=== PATIENT | male | born 1995 | race Caucasian/White ===

== ENCOUNTER 2019-09-08 10:18 | Inpatient (IN) | payer BC ==
[~2019-09-08] VITALS: Ht 177.8 cm; Wt 109.0 kg
[2019-09-08 10:31] VITALS: BP 157/83
--- NOTE | 2019-09-08 10:37 | NUR ---
pt ambulated to restroom with steady gait.
--- NOTE | 2019-09-08 10:40 | NUR ---
C/O FREQUENT URINATION, INCREASED THIRST, WEIGHT LOSS, BLURRY VISION, DIZZINESS, AND HEADACHE X2 DAYS. PAIN 5/10. PT REPORTS 10-15LB WEIGHT LOSS IN LAST WEEK. FSBS 435 UPON TRIAGE. DENIES AB PAIN, CP, SOB, OR N/V/D. PUPILS PERRL. PT REPORTS FAMILY HX OF DIABETES. PT TACHY AT 111. PT ALERT AND AWAKE, AMBULATORY WITH STEADY GAIT HX: ADHD RX: NONE
--- NOTE | 2019-09-08 10:42 | NUR ---
DR DYKES AT BEDSIDE
[2019-09-08] MEDS ORDERED: NACL 0.9% 2,000 ML IV ONE (10:50)
--- NOTE | 2019-09-08 10:56 | NUR ---
Respiratory therapist at bedside for ABG.
--- NOTE | 2019-09-08 11:00 | NUR ---
iv inserted and labs drawn bedside
--- NOTE | 2019-09-08 11:04 | NUR ---
ekg being completed bedside
--- NOTE | 2019-09-08 11:13 | NUR ---
XRAY AT BEDSIDE
[2019-09-08 11:18] LABS: APPEARANCE,URINE CLEAR (CLEAR); BILIRUBIN,URINE NEGATIVE (NEGATIVE); BLOOD, URINE 1+ (NEGATIVE); COLOR,URINE YELLOW (YELLOW); LEUKOCYTE ESTERASE ,URINE NEGATIVE (NEGATIVE); NITRITE, URINE NEGATIVE (NEGATIVE); PH,URINE 5.5 (5.0-9.0); UGLUCOSE 3+ (NEGATIVE)
[2019-09-08 11:22] LABS: BASOPHILS % (AUTO) 0.4 % (0.0-2.0); EOSINOPHILS # (AUTO) 0.1 K/uL (0-0.4); HEMATOCRIT 43.7 % (36-52); HEMOGLOBIN 15.3 g/dL (12.0-18.0); LYMPHOCYTES # (AUTO) 1.7 K/uL (2.0-11.5); LYMPHOCYTES % (AUTO) 20.4 % (20.5-51.1); MEAN CORPUSCULAR HEMOGLOBIN 29 pg (27-31); MEAN CORPUSCULAR HGB CONC 35 g/dL (33-37); MEAN CORPUSCULAR VOLUME 82.3 fL (80-94); MONOCYTES # (AUTO) 0.5 K/uL (0.8-1.0); MONOCYTES % (AUTO) 6.5 % (1.7-9.3); NEUTROPHILS # (AUTO) 5.9 K/uL (1.8-7.7); NEUTROPHILS % (AUTO) 71.7 % (42.2-75.2); PLATELET COUNT (AUTO) 289 K/uL (140-450); RED BLOOD CELL COUNT(AUTO) 5.31 MIL/uL (4.20-6.10); RED CELL DISTRIBUTION WIDTH 12.8 % (11.6-13.7); WHITE BLOOD COUNT (AUTO) 8.2 K/uL (4.8-10.8)
[2019-09-08 11:58] LABS: WBC,URINE 0-5 /HPF (0-5)
--- NOTE | 2019-09-08 12:02 | NUR ---
LABS ARE BEING SENT TO ANOTHER FACILITY DUE TO HIGH FAT CONTENT PER BALANCE SCREWHEAD POLISHER
--- NOTE | 2019-09-08 12:07 | NUR ---
RESIDENT AT BEDSIDE.
--- NOTE | 2019-09-08 12:08 | NUR ---
NADR PAIN 02/07
[2019-09-08] MEDS ORDERED: ONDANSETRON 4 MG/2 ML VIAL IM/IVP PRN (12:10)
[2019-09-08] MEDS ORDERED: ZOLPIDEM 5 MG TAB PO PRN (12:10)
[2019-09-08] MEDS ORDERED: MORPHINE SULFATE 2 MG/ML SYR IVP PRN (12:10)
[2019-09-08] MEDS ORDERED: HYDROcodone/APAP 5/325 MG 1 TAB TAB PO PRN (12:10)
[2019-09-08] MEDS ORDERED: DOCUSATE SODIUM 100 MG GELCAP PO PRN (12:10)
[2019-09-08] MEDS ORDERED: LORazepam 2 MG/ML VIAL IM/IVP PRN (12:10)
[2019-09-08] MEDS ORDERED: DEXT 5% / NACL 0.45% 1,000 ML IV SCH (12:20)
[2019-09-08] MEDS ORDERED: DEXTROSE 50% 50 ML SYR IVP PRN ×2 (12:20→16:20)
[2019-09-08] MEDS: NACL 0.9% 1,000 ML IV SCH ×2 (12:35→15:40)
[2019-09-08] MEDS ORDERED: NACL 0.9% 1,000 ML IV SCH ×2 (12:45→14:20)
--- NOTE | 2019-09-08 12:49 | NUR ---
SPOKE OVER THE PHONE WITH RESIDENT HANG, INSTRUCTED TO NOT START INSULIN DRIP UNTIL POTASSIUM LAB HAS RETURNED AND TO CALL RESIDENT BEFORE STARTING DRIP
--- NOTE | 2019-09-08 13:15 | NUR ---
consent form signed for picc line
--- NOTE | 2019-09-08 13:26 | NUR ---
accu check 247 mg/dl dr mills informed.
--- NOTE | 2019-09-08 13:26 | NUR ---
LABS AT BEDSIDE.
--- NOTE | 2019-09-08 13:33 | NUR ---
RECEIVED PT FROM ER VIA GURNEY; TRANSFERRED TO ICU 5.PT A/O X4.ABLE TO AMBULATE TO BED.MONITORS ATTACHED.NSR ON MONITOR.ON ROOM AIR.DENIES SOB.WITH PICC LINE TO ASHISH NOTED AND PERIPHERAL IV'S TO LT HAND G22 SALINE LOCK AND RT HAND G20 INFUSING NS AT 60ML/HR.SKIN INTACT WITH MULTIPLE TATTOOS NOTED. DENIES PAIN AT THIS TIME.
--- NOTE | 2019-09-08 13:35 | NUR ---
PT STATES HE DOES NOT WANT ANY PAIN MEDICATION FOR HIS HEADACHE.
--- NOTE | 2019-09-08 13:51 | NUR ---
PICC LINE RN 30 MINUTES ETA.
--- NOTE | 2019-09-08 13:54 | NUR ---
LAB AT BEDSIDE FOR BLOOD CULTURES
--- NOTE | 2019-09-08 13:54 | NUR ---
FLU SWAB COLLECTED AND HANDED TO MOVABLE BULKHEAD INSTALLER
--- NOTE | 2019-09-08 14:13 | NUR ---
ACCU CHECK 294 MG/DL RESIDENT AT BEDSIDE DR MAURICIO
[2019-09-08] MEDS ORDERED: POTASSIUM CHLORIDE 10 MEQ TABER PO SCH ×2 (14:15→18:15)
[2019-09-08] MEDS ORDERED: INSULIN REGULAR, HUMAN 100 UNIT/ML VIAL SUBQ SCH (14:15)
--- NOTE | 2019-09-08 14:16 | NUR ---
PT AMBULATES TO THE RESTROOM C/O BLURRING OF VISSION ACCOMPANIED BY HEADACHE.
--- NOTE | 2019-09-08 14:31 | NUR ---
POTASSIUM TAB PO ADMINISTERED
--- NOTE | 2019-09-08 14:31 | NUR ---
NORCO ADMINISTERED PO FOR PT HEADACHE 02/07
--- NOTE | 2019-09-08 14:47 | NUR ---
PICC LINE RN AT BEDSIDE.
--- NOTE | 2019-09-08 14:57 | NUR ---
PICC RN FINISH AT BEDSIDE . SPOKE TO DR MAURICIO ORDERED CXRAY TO CONFIRMED PLACEMENT.
--- NOTE | 2019-09-08 14:59 | NUR ---
XRAY AT BEDSIDE.
--- NOTE | 2019-09-08 15:03 | NUR ---
NADR PAIN AT 310
[2019-09-08] MEDS ORDERED: LORazepam 2 MG/ML VIAL IVP PRN (15:10)
--- NOTE | 2019-09-08 15:13 | NUR ---
PICC LINE PERFORM BY BRISSA ALFARO CATHETER SIZE 5 BELIZEAN INTERNAL LENGHT 40 CM.
--- NOTE | 2019-09-08 15:14 | NUR ---
DOUBLE LUMEN PICC
--- NOTE | 2019-09-08 15:22 | NUR ---
ACCU CHECK 253
--- NOTE | 2019-09-08 15:23 | NUR ---
Madalyn gonzalez in [place] - 09/08/19 at 1525 by RANI ACCU CHECK 253
--- NOTE | 2019-09-08 15:41 | NUR ---
Patient will be admitted to care of DR SHULTZ. Admited to ICU . Will go to room 5. Belongings list completed. Report to janelle bryan.IVF running at 60ml/hr. Janelle instructed donot start insulin drip until blood chemistry has return and to call resident before starting.
[2019-09-08] MEDS: BLOOD GLUCOSE MONITORING 1 DEV DEV FS SCH ×8 (16:00→23:00)
--- NOTE | 2019-09-08 16:00 | NUR ---
BS 238; CALLED DR BRYSON, TO F/U BMP RESULT.NO INSULIN ORDERED AT THIS TIME. F/U LAB ; RESULTS NOT IN YET; BLOOD WAS SENT OUT
--- NOTE | 2019-09-08 16:15 | NUR ---
US TO BLE ONGOING AT THIS TIME
[2019-09-08 16:21] LABS: BARBITURATE, URINE NEG. ng/ml (NEG <=200); BENZODIAZEPINE, URINE NEG. ng/mL (NEG <=200); CANNABINOID, URINE POS. ng/mL (NEG <=50); COCAINE, URINE NEG. ng/mL (NEG <=300); OPIATE, URINE NEG. ng/mL (NEG <=2000); PHENCYCLIDINE SCREEN,URINE NEG. ng/mL (NEG <=25)
[2019-09-08] MEDS ORDERED: BLOOD GLUCOSE MONITORING 1 DEV DEV FS SCH (16:30)
[2019-09-08 16:49] VITALS: BP 135/59
--- NOTE | 2019-09-08 17:20 | NUR ---
DR SHULTZ AT BEDSIDE AND SPOKE WITH PT.UPDATED MD OF PTS PRESENT CONDITION.MD MADE AWARE OF BS 230 AT 1700; NO BMP RESULT AT THIS TIME.ORDERED TO INCREASE IVF NS TO 100ML/HR.DONE
--- NOTE | 2019-09-08 17:25 | NUR ---
CALLED DR BRYSON WITH VBG RESULTS SHE TOLD ME TO PAGE DR CLINE [id number] VBG RESULTS LEFT WITH RN
--- NOTE | 2019-09-08 17:35 | NUR ---
PHONE CALL FROM DR BRYSON TO CALL DR CLINE FOR THE VBG RESULT; READ BACK VBG RESULT AND MD MADE AWARE THAT PT IS NOT ON INSULIN DRIP AT THIS TIME.UNABLE TO GET BMP RESULT YET. CALLED DR BRYSON TO CALL DR CLINE PER
[2019-09-08 18:00] VITALS: BP 118/63
[2019-09-08] MEDS: INSULIN REGULAR, HUMAN 100 UNIT in NACL 0.9% 100 ML IV SCH ×14 (18:12→22:59)
--- NOTE | 2019-09-08 18:12 | NUR ---
BS 226; PHONE CALL FROM DR BRYSON TO START INSULIN DRIP ORDERED AND TO ORDER FOR PT TO BE TRANSFERRED TO HIGHER LEVEL OF CARE. PHONE CALL TO RUBIA ALMONTE MANAGER COPY AND MADE AWARE OF THE TRANSFER ORDER.
--- NOTE | 2019-09-08 18:26 | NUR ---
STARTED INSULIN DRIP ORDERED.VERIFIED DOSE WITH GAGE PAZ AND PHARMACIST [facility].
[2019-09-08 18:29] LABS: ANION GAP 26.8 (8-16); CARBON DIOXIDE 10.3 mmol/L (21-32); POTASSIUM 4.1 mmol/L (3.5-5.1)
[2019-09-08 18:30] LABS: CREATININE 1.1 mg/dL (0.7-1.3); TOTAL BILIRUBIN 0.7 mg/dL (0.0-1.0)
[2019-09-08 18:32] LABS: ALBUMIN 4.6 g/dL (3.4-5.0)
--- NOTE | 2019-09-08 19:39 | NUR ---
RECEIVED REPORT FROM HARSHIL ALMONTE. PT IS ALERT AND ORIENTED X4. PERRLA. SINUS RHYTHM ON MONITOR. NO SOB NOTED. CHEST RISE SYMMETRICAL AND EVEN. ABDOMEN SOFT AND BOWEL SOUNDS ACTIVE. NPO EXCEPT. PICC LINE ON ASHISH. INTACT AND PATENT. NS INFUSING AT 100ML/HR AND INSULIN AT 10ML/HR. PT USES URINAL PRN. SKIN IS INTACT, WARM AND DRY. GENERALIZED WEAKNESS. DENIES ANY PAIN OR NAUSEA. HOB 30 DEGREES. BED LOCKED IN LOWEST POSITION.
[2019-09-08 20:00] VITALS: BP 122/67
--- NOTE | 2019-09-08 20:00 | NUR ---
BS 155; DR ROMO AWARE; INSULIN DRIP DECREASED TO 5UNITS/HR AND TO CONTINUE ORDERED IVF.
--- NOTE | 2019-09-08 21:00 | NUR ---
BS 105; DR MOSS IN THE UNIT.ORDERED TO DECREASED INSULIN DRIP TO 1 UNIT AND CHANGE IVF TO D5NS AT 200ML/HR
[2019-09-08] MEDS: ACETAMINOPHEN 325 MG TAB PO PRN (21:02)
[2019-09-08] MEDS ORDERED: DEXT 5% / NACL 0.9% 500 ML IV SCH (21:20)
[2019-09-08] MEDS ORDERED: DEXT 5% /NACL 0.9% 1,000 ML IV SCH (21:30)
[2019-09-08 22:00] VITALS: BP 121/67
--- NOTE | 2019-09-08 23:00 | NUR ---
PTS AT BEDSIDE.UPDATED ON PTS PRESENT CONDITION. PT ALERT AND ORIENTED. PER DR JESSICA ROMO; OK FOR PT TO EAT; DIABETIC DIET GIVEN.PT DENIES N/V.
[2019-09-09] VITALS: BP 114/74
[2019-09-09] MEDS: INSULIN REGULAR, HUMAN 100 UNIT in NACL 0.9% 100 ML IV SCH ×14 (00:24→06:20)
--- NOTE | 2019-09-09 00:24 | NUR ---
SPOKE WITH DR JESSICA ROMO; BS 0000 253; STILL TO FOLLOW PROTOCOL TO GIVE 3 UNITS INSULIN DRIP ORDERED. MD AWARE PT HAD SNACKS AND ON D5NS AT 200ML/HR.
[2019-09-09 00:53] LABS: ANION GAP 21.8 (8-16); CREATININE 0.9 mg/dL (0.7-1.3); POTASSIUM 3.8 mmol/L (3.5-5.1)
[2019-09-09] MEDS: BLOOD GLUCOSE MONITORING 1 DEV DEV FS SCH ×12 (01:00→07:20)
[2019-09-09 01:06] LABS: CARBON DIOXIDE 7.5 mmol/L (21-32)
[2019-09-09] MEDS: NACL 0.9% 1,000 ML IV SCH ×3 (01:28→06:26)
--- NOTE | 2019-09-09 01:30 | NUR ---
DR JESSICA ROMO IN THE UNIT.NEW ORDER TO CHANGE IVF TO NS AT 200ML.DONE AND PT BACK TO NPO STATUS.PT MADE AWARE.
[2019-09-09] MEDS ORDERED: INFLUENZA VACCINE QUAD 0.5 ML SYR IMVAC PRN (01:40)
[2019-09-09] MEDS ORDERED: PNEUMOCOCCAL VACCINE 23 MCG/0.5 ML VIAL IMVAC SCH (01:40)
[2019-09-09 02:00] VITALS: BP 105/63
--- NOTE | 2019-09-09 02:16 | NUR ---
PHONE CALL TO DR MSOS RE; BS 362; DR MOSS MADE AWARE THAT INSULIN DRIP INCREASED TO 5UNITS PER PROTOCOL AND TO CALL PHYSICIAN.NO NEW ORDERS
--- NOTE | 2019-09-09 02:28 | NUR ---
PHONE CALL FROM DR JESSICA ROMO; TO USE THE INSULIN DRIP PROTOCOL 0.1UNITS/KG/HR. INSULIN DRIP ADMINISTERED ORDERED.PTS WEIGHT 109 KGS.
[2019-09-09] MEDS ORDERED: MAG SULF 2000 MG/WATER PREMIX 50 ML IV SCH ×2 (03:00→06:30)
[2019-09-09 04:00] VITALS: BP 92/48
--- NOTE | 2019-09-09 04:18 | NUR ---
PTS EYES CLOSED; EASILY AROUSABLE.SR ON MONITOR.BS AT 0400 261; STILL ON INSULIN DRIP PER PROTOCOL; ABLE TO VOID FREELY.DENIES PAIN.PT ABLE TO REPOSITION SELF.
[2019-09-09] MEDS ORDERED: FLUMAZENIL 0.5 MG/5 ML VIAL IVP ONE (04:42)
[2019-09-09] MEDS ORDERED: ATI2I IVP (05:54)
[2019-09-09] MEDS ORDERED: ONDA2SOL45 IM/IVP (05:54)
[2019-09-09] MEDS ORDERED: HEPA500056 SUBQ (05:54)
[2019-09-09] MEDS ORDERED: ZOLP5TAB1 PO (05:54)
[2019-09-09] MEDS ORDERED: ACET-1182 PO (05:54)
[2019-09-09] MEDS ORDERED: FOLI1TAB90 PO (05:54)
[2019-09-09] MEDS ORDERED: ACET-9525 PO (05:54)
[2019-09-09] MEDS ORDERED: [UNRECOGNIZED DRUG - CODE] IV (05:54)
[2019-09-09] MEDS ORDERED: GLUC-805 FS (05:54)
[2019-09-09] MEDS ORDERED: LISI-420 PO (05:54)
[2019-09-09] MEDS ORDERED: ATI2I IM/IVP (05:54)
[2019-09-09] MEDS ORDERED: THIA-34 PO (05:54)
[2019-09-09] MEDS ORDERED: MULT-405 PO (05:54)
[2019-09-09] MEDS ORDERED: INSU100P IV (05:54)
[2019-09-09] MEDS ORDERED: DOCU-299 PO (05:54)
[2019-09-09 06:00] VITALS: BP 119/60
--- NOTE | 2019-09-09 06:00 | NUR ---
PHONE CALL FROM JUAN OF [facility]; PT ACCEPTED THERE AND GOING TO ROOM 407.ACCEPTING DOCTOR IS DR BRAVO, AND REPORT # [phone] JESSICA ROMO AND MADE AWARE OF THE ABOVE.
--- NOTE | 2019-09-09 06:25 | NUR ---
PHONE CALL TO [facility]; PT FOR TRANSFER TO [facility].QUESTIONS ANSWERED.PT GOING TO ROOM 407
[2019-09-09] MEDS: ACETAMINOPHEN 325 MG TAB PO PRN (06:26)
[2019-09-09 06:28] VITALS: BP 117/69
[2019-09-09] MEDS ORDERED: SODIUM PHOS / POTASSIUM PHOS 1 PKT PDR PO SCH (06:30)
--- NOTE | 2019-09-09 06:30 | NUR ---
REPORT GIVEN TO DARREN ALMONTE OF [facility].QUESTIONS ANSWERED.
[2019-09-09] MEDS ORDERED: SODIUM PHOS / POTASSIUM PHOS 1 PKT PDR ONE (06:36)
--- NOTE | 2019-09-09 07:15 | NUR ---
PT HR 91, TEMP 97.6, BP 122/79, O2 SATS 98%. RR 16.
--- NOTE | 2019-09-09 07:15 | NUR ---
RECEIVED PT FROM PM SHIFT RN. PT AWAKE, ALERT. ABLE TO MAKE NEEDS KNOWN AND FOLLOW COMMANDS. ON RA, NO S/S OF RESPIRATORY DISTRESS NOTED. PER PM SHIFT RN, PT WILL BE TRANSFERRED TO [facility]. PT HAS IV RUNNING D5 1/2 NS AT 150 CC/HR, INSULIN DRIP AT 5 UNITS/HR AND MAG RIDER AT 25 CC/HR. PT ABLE TO AMBULATE. INTRODUCED MYSELF, PT MADE AWARE HE WILL BE TRANSFERRED TO [facility] SOON. CALL LIGHT IN REACH.
--- NOTE | 2019-09-09 07:40 | NUR ---
TRANSPORTATION TEAM IN UNIT. REPORT GIVEN. PT VITALS STABLE. DENIES PAIN OR DISCOMFORT.
--- NOTE | 2019-09-09 07:55 | NUR ---
PT AWAKE, ALERT. ON RA. NO S/S OF RESPIRATORY DISTRESS NOTED. DENIES PAIN. ALL PERSONAL BELONGINGS WITH PT. PT LEFT WITH TRANSPORTATION TEAM IN STABLE VITALS.
[2019-09-09] MEDS ORDERED: POTASSIUM CHLORIDE 10 MEQ TABER PO SCH (08:00)
[2019-09-09] MEDS ORDERED: DEXT 5% / NACL 0.45% 1,000 ML IV SCH (08:00)
[2019-09-09] MEDS ORDERED: THIAMINE 100 MG TAB PO SCH (09:00)
[2019-09-09] MEDS ORDERED: LISINOPRIL 20 MG TAB PO SCH (09:00)
[2019-09-09] MEDS ORDERED: FOLIC ACID 1 MG TAB PO SCH (09:00)
[2019-09-09] MEDS ORDERED: MULTIVITAMIN 1 TAB PO SCH (09:00)
[2019-09-09 10:30] LABS: ANION GAP 22.4 (8-16); CHLORIDE 105 mmol/L (98-107); GLUCOSE 254 mg/dL (74-106); POTASSIUM 3.9 mmol/L (3.5-5.1); SODIUM SERUM 131 mmol/L (136-145)
[2019-09-09 10:31] LABS: CREATININE 0.8 mg/dL (0.7-1.3); GFR ARICAN-AMERICAN 153 mL/min (>90); UREA NITROGEN, BLOOD 7 mg/dL (7-18)
[2019-09-09 10:34] LABS: ANION GAP 19.8 (8-16); CHLORIDE 108 mmol/L (98-107); CREATININE 0.7 mg/dL (0.7-1.3); GFR ARICAN-AMERICAN 178 mL/min (>90); GLUCOSE 137 mg/dL (74-106); POTASSIUM 3.8 mmol/L (3.5-5.1); SODIUM SERUM 134 mmol/L (136-145); UREA NITROGEN, BLOOD 6 mg/dL (7-18)
== END 2019-09-09 07:55 | disposition home or self-care (01) | DRG 638 ==
LOC: MED 10:18 → MIC 12:13
PROVIDERS: ADMIT General Practice; ATTEND General Practice
PROC: 02HV33Z Insertion of Infusion Device into Superior Vena Cava, Percutaneous Approach (ICD-10-PCS; 2019-09-08)
PROC: B548ZZA Ultrasonography of Superior Vena Cava, Guidance (ICD-10-PCS; 2019-09-08)
PROC: 3E0234Z Introduction of Serum, Toxoid and Vaccine into Muscle, Percutaneous Approach (ICD-10-PCS; principal; 2019-09-09)
PROC: 3E02340 Introduction of Influenza Vaccine into Muscle, Percutaneous Approach (ICD-10-PCS; 2019-09-09)
DX: E10.10 Type 1 diabetes mellitus with ketoacidosis without coma (principal); E87.1 Hypo-osmolality and hyponatremia; E83.42 Hypomagnesemia; I10 Essential (primary) hypertension; E66.9 Obesity, unspecified; E86.0 Dehydration; E83.39 Other disorders of phosphorus metabolism; F12.10 Cannabis abuse, uncomplicated; Z83.3 Family history of diabetes mellitus; Z86.718 Personal history of other venous thrombosis and embolism; Z23 Encounter for immunization; Z68.34 Body mass index [BMI] 34.0-34.9, adult
CPT/HCPCS: 36415; 36600; 71045; 80048; 80053; 80061; 80305; 81001; 82803; 82948; 83036; 83519; 83690; 83735; 84100; 84134; 84443; 84484; 84681; 85025; 85610; 87040; 87081; 87086; 87804; 93005; 93925; 93970; J1644; J1815; J3475; J3490; J7030; J7042; Q0092